=== PATIENT | male | born 1955 | race African-American/Black ===

== ENCOUNTER 2024-04-18 16:07 | Emergency (ER) | payer BC, MEDICAID ==
[~2024-04-18] VITALS: Ht 172.7 cm; Wt 81.0 kg
[2024-04-18 16:14] VITALS: O2SAT 88
[2024-04-18] MEDS ORDERED: ACETAMINOPHEN 325MG TABLET PO STA (16:20)
[2024-04-18] MEDS: SODIUM CHLORIDE 0.9% (SEPSIS BOLUS) IV ONE (16:30)
[2024-04-18] MEDS: CEFTRIAXONE 1GM/50ML 50 ML IV ONE (16:30)
[2024-04-18] MEDS ORDERED: AZITHROMYCIN 500MG/250ML 250 ML IV ONE (16:30)
[2024-04-18 17:25] LABS: BASOPHILS % 0.4 % (0.0-2.0); DIFFERENTIAL COMMENT 0; EOSINOPHILS % 0.6 % (0.0-5.0); HEMATOCRIT. 39.9 % (42.0-52.0); HEMOGLOBIN. 13.6 g/dL (14.0-18.0); LYMPHOCYTES % 43.2 % (20.0-50.0); MEAN CORPUSCULAR HEMOGLOBIN 30.2 pg (28.0-32.0); MEAN CORPUSCULAR VOLUME 88.7 fL (80.0-94.0); MEAN PLATELET VOLUME 8.8 fl (7.4-10.4); MONOCYTES % 2.6 % (2.0-8.0); NEUTROPHILS % 53.2 % (40.0-76.0); PLATELET 207 x1000/uL (130-400); RED CELL DISTRIBUTION WIDTH 15.1 % (11.6-14.6); WHITE BLOOD COUNT 4.3 x1000/uL (4.5-11.0)
[2024-04-18 17:29] LABS: CHLORIDE 104 mEq/L (98-107); POTASSIUM 3.3 mEq/L (3.5-5.1); SODIUM 137 mEq/L (136-145)
[2024-04-18 17:30] LABS: CARBON DIOXIDE 22 mEq/L (21-32)
[2024-04-18 17:31] LABS: CALCIUM 8.9 mg/dL (8.7-10.4)
[2024-04-18 17:35] LABS: CREATININE 1.3 mg/dL (0.6-1.3); GLUCOSE 73 mg/dL (70-105)
[2024-04-18 17:36] LABS: TROPONIN I HIGH SENSITIVITY 8 ng/L (3.0-53); UREA NITROGEN BLOOD 8 mg/dL (9-23)
[2024-04-18 17:57] LABS: INR 1.1; PROTHROMBIN TIME 12.1 sec (9.6-11.0)
[2024-04-18 17:57] LABS: LACTIC ACID 4.3 mmol/L (0.4-2.0)
[2024-04-18] MEDS: AZITHROMYCIN 500MG/250ML 250 ML IV NR (18:19)
[2024-04-18] MEDS: ACETAMINOPHEN 325MG TABLET PO NR (18:31)
[2024-04-18] MEDS ORDERED: LACTATED RINGERS 1,000 ML IV SCH ×2 (20:35→21:15)
[2024-04-18] MEDS ORDERED: NOREPINEPHRINE 8MG/250ML PMX 250 ML IV PRN (20:45)
[2024-04-18 20:50] LABS: TROPONIN I HIGH SENSITIVITY 38 ng/L (3.0-53)
[2024-04-18] MEDS: NOREPINEPHRINE 8MG/250ML PMX 250 ML IV ONE (21:27)
[2024-04-18 22:16] LABS: TROPONIN I HIGH SENSITIVITY 36 ng/L (3.0-53)
[2024-04-19] MEDS ORDERED: IPRATROPIUM/ALBUTEROL 0.5-3(2.5)MG/3ML NEB HHN SCH
[2024-04-19] MEDS: PANTOPRAZOLE SODIUM 40 MG/VIAL IV SCH (00:25)
[2024-04-19] MEDS: HEPARIN 5000 UNITS/ML VIAL SUBCUT SCH (00:25)
[2024-04-19] MEDS: DEXT 5%/LACTATED RINGERS 1,000 ML IV SCH (00:26)
[2024-04-19 01:59] LABS: LACTIC ACID 2.7 mmol/L (0.4-2.0)
[2024-04-19 05:38] LABS: BASOPHILS % 0.3 % (0.0-2.0); HEMOGLOBIN. 12.1 g/dL (14.0-18.0); LYMPHOCYTES % 15.9 % (20.0-50.0); MEAN CORPUSCULAR HEMOGLOBIN 30.7 pg (28.0-32.0); MEAN CORPUSCULAR HGB CONC 34.6 g/dL (31.0-37.0); MEAN CORPUSCULAR VOLUME 88.7 fL (80.0-94.0); MEAN PLATELET VOLUME 8.4 fl (7.4-10.4); MONOCYTES % 3.9 % (2.0-8.0); NEUTROPHILS % 79.9 % (40.0-76.0); PLATELET 231 x1000/uL (130-400); RED BLOOD CELL COUNT 3.95 mill/uL (4.7-6.1); RED CELL DISTRIBUTION WIDTH 15.1 % (11.6-14.6); WHITE BLOOD COUNT 18.3 x1000/uL (4.5-11.0)
[2024-04-19] MEDS ORDERED: CEFEPIME 1GM IN DEXT 5% 50ML IV SCH (06:00)
[2024-04-19 06:07] LABS: CHLORIDE 116 mEq/L (98-107); POTASSIUM 3.4 mEq/L (3.5-5.1)
[2024-04-19 06:08] LABS: CARBON DIOXIDE 21 mEq/L (21-32)
[2024-04-19 06:09] LABS: CALCIUM 8.1 mg/dL (8.7-10.4)
[2024-04-19 06:13] LABS: CREATININE 1.2 mg/dL (0.6-1.3); GLUCOSE 83 mg/dL (70-105)
[2024-04-19 06:14] LABS: UREA NITROGEN BLOOD 8 mg/dL (9-23)
[2024-04-19 06:15] LABS: ALANINE AMINOTRANSFERASE 12 IU/L (10-49); ALBUMIN 3.6 g/dL (3.2-4.8); ASPARTATE AMINOTRANSFERASE 50 IU/L (<34)
[2024-04-19 06:16] LABS: BILIRUBIN TOTAL 0.7 mg/dL (0.1-1.0); PROTEIN TOTAL 6.1 g/dL (6.0-8.3)
[2024-04-19 07:59] LABS: SODIUM 145 mEq/L (136-145)
[2024-04-19 08:09] LABS: LACTIC ACID 4.9 mmol/L (0.4-2.0)
[2024-04-19] MEDS: ALBUMIN HUMAN 25GM/500ML (5%) IV NR (10:30)
[2024-04-19] MEDS: CEFEPIME 1GM PREMIX 50ML IV SCH (11:58)
[2024-04-19] MEDS: MIDODRINE HCL 5MG TABLET PO SCH (13:00)
[2024-04-19] MEDS ORDERED: AZITHROMYCIN 500MG/250ML 250 ML IV SCH (18:00)
[2024-04-19] MEDS: NOREPINEPHRINE 8MG/250ML PMX 250 ML IV PRN (22:23)
[2024-04-20 05:17] LABS: CHLORIDE 107 mEq/L (98-107); POTASSIUM 3.5 mEq/L (3.5-5.1); SODIUM 139 mEq/L (136-145)
[2024-04-20 05:18] LABS: CALCIUM 8.1 mg/dL (8.7-10.4); CARBON DIOXIDE 23 mEq/L (21-32)
[2024-04-20 05:19] LABS: BASOPHILS % 0.4 % (0.0-2.0); EOSINOPHILS % 0.3 % (0.0-5.0); HEMATOCRIT. 33.3 % (42.0-52.0); HEMOGLOBIN. 11.5 g/dL (14.0-18.0); LYMPHOCYTES % 19.2 % (20.0-50.0); MEAN CORPUSCULAR HEMOGLOBIN 30.4 pg (28.0-32.0); MEAN CORPUSCULAR HGB CONC 34.6 g/dL (31.0-37.0); MEAN CORPUSCULAR VOLUME 87.7 fL (80.0-94.0); MEAN PLATELET VOLUME 9.2 fl (7.4-10.4); NEUTROPHILS % 76.1 % (40.0-76.0); PLATELET 236 x1000/uL (130-400); RED CELL DISTRIBUTION WIDTH 15.5 % (11.6-14.6); WHITE BLOOD COUNT 25.1 x1000/uL (4.5-11.0)
[2024-04-20 05:23] LABS: CREATININE 1.1 mg/dL (0.6-1.3); GLUCOSE 117 mg/dL (70-105); UREA NITROGEN BLOOD 8 mg/dL (9-23)
[2024-04-20] MEDS: NOREPINEPHRINE 8MG/250ML PMX 250 ML IV PRN (05:43)
[2024-04-20] MEDS: POTASSIUM CHLORIDE 20MEQ TABLET SR PO NR (08:28)
[2024-04-20] MEDS: AZITHROMYCIN 500MG/250ML 250 ML IV SCH (08:40)
[2024-04-20] MEDS: POTASSIUM CHLORIDE 20MEQ/PACKET PO NR (12:00)
[2024-04-20] MEDS ORDERED: IPRATROPIUM/ALBUTEROL 0.5-3(2.5)MG/3ML NEB HHN PRN (13:15)
[2024-04-20 19:50] VITALS: TEMP 36.89184
[2024-04-20] MEDS ORDERED: ACETYLCYSTEINE 200MG/ML 20% VIAL 4ML INH SCH (21:00)
[2024-04-21] MEDS ORDERED: DOPAMINE 400MG/250ML PREMIX 250 ML IV PRN (07:15)
[2024-04-21 09:30] VITALS: BP 103/77; PULSE 55; RESP 18; O2SAT 100
== END 2024-04-21 10:25 | disposition left against medical advice (07) ==
LOC: ER 16:07 → EDBEDREQSVC 20:08 → EDBEDREQTM 20:08 → EDBEDREQ 20:08 → ER 04-21 10:25
DX: A41.9 Sepsis, unspecified organism (principal); R65.21 Severe sepsis with septic shock; J96.00 Acute respiratory failure, unspecified whether with hypoxia or hypercapnia; J18.9 Pneumonia, unspecified organism; E03.9 Hypothyroidism, unspecified; I10 Essential (primary) hypertension; E78.5 Hyperlipidemia, unspecified
CPT/HCPCS: 99291; 96365; 96367; 80053; 85025; 85610; 87040; 84484; 84145; 71045 ×2; 93005; 96368; 96376; 80048; 83605; 36415; 96366; J0456 ×2; J0696; J3490 ×2; J7030; P9041; J0692 ×2; J1644 ×2; J2470 ×2; A4606